=== PATIENT | male | born 1980 | race Caucasian/White ===

== ENCOUNTER 2016-09-14 12:06 | Emergency (ER) | payer SELFPAY ==
[2016-09-14 12:47] VITALS: BP 147/95
--- NOTE | 2016-09-14 12:56 | ER Document Report ---
HPI - HPI Patient complains to provider of: leg pain Pain Level: 3 Context: Patient is a 36-year-old male presents emergency Department complaining of left thigh strain. 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 Patient states he woke up yesterday morning with left eye pain that is worse with hip flexion otherwise he denies any difficulty walking or able to bear weight. Denies any trauma or injury. - DERM Skin Color: Normal Past Medical History - Social History Smoking Status: Current Every Day Smoker Family History: Reviewed & Not Pertinent Patient has suicidal ideation: No Patient has homicidal ideation: No Renal/ Medical History: Denies: Hx Peritoneal Dialysis Vertical Provider Document - CONSTITUTIONAL Agree With Documented VS: Yes Exam Limitations: No Limitations General Appearance: WD/WN, No Apparent Distress - INFECTION CONTROL TRAVEL OUTSIDE OF THE [place] IN LAST 30 DAYS: No - RESPIRATORY O2 Sat by Pulse Oximetry: 98 - CARDIOVASCULAR Pulses: Normal: Femoral, Popliteal, Posterior tibial, Dorsalis pedis - MUSCULOSKELETAL/EXTREMETIES Musculoskeletal/Extremeties: MAEW, FROM, Non-Tender, No Edema. negative: Eccymosis Notes: No knee laxity appreciated. Strength 5 out of 5 bilaterally lower extremities. - NEURO Level of Consciousness: Awake, Alert, Appropriate Motor/Sensory: No Motor Deficit, No Sensory Deficit - DERM Integumentary: Warm, Dry, No Rash Course - Re-evaluation Re-evalutation: 09/14/16 14:12 Patient presents today with symptoms consistent with a muscle strain. No indication for additional imaging at this time given the benign physical exam findings stretch patient home with instruction to follow with primary care as needed - Vital Signs Vital signs: Temp Pulse Resp BP Pulse Ox 98.7 F 97 18 147/95 H 98 09/14/16 12:45 09/14/16 12:45 09/14/16 12:45 09/14/16 12:45 09/14/16 12:45 Discharge - Discharge Clinical Impression: Muscle strain Condition: Good Disposition: HOME, SELF-CARE Instructions: Muscle Strain ([facility]) Prescriptions: Ibuprofen [Motrin 600 Mg Tablet] 600 mg PO TID #15 tablet Forms: Elevated Blood Pressure, Special Work Note, Return to Work Referrals: WILFREDO TOLEDO MD [COMMUNITY BASED STAFF] - Follow up as needed
== END 2016-09-14 13:28 | disposition home or self-care (01) ==
LOC: ER 12:06
DX: S76.912A Strain of unspecified muscles, fascia and tendons at thigh level, left thigh, initial encounter (principal); X58.XXXA Exposure to other specified factors, initial encounter; F17.200 Nicotine dependence, unspecified, uncomplicated
CPT/HCPCS: 99283